=== PATIENT | male | born 1955 | race Two or more races ===

== ENCOUNTER 2021-04-27 12:48 | Observation (INO) | payer MEDICARE ==
[~2021-04-27] VITALS: Ht 152.4 cm; Wt 87.9 kg
[~2021-04-27 12:48] MED LIST: CIPROFLOXACIN500 MG PO; FERROUS SULFAT325 M2 PO; FLAGYL250 MG PO; KLOR-CON M2020 MEQ PO; LACTULOSE20 GM/30 M PO; LASIX40 MG PO; MAGNESIUM400 MG PO; NORCO 5-325 TA1 EACH PO; PROTONIX40 MG PO; SPIRONOLACTONE25 MG PO; THERA1 EACH PO
[2021-04-27] MEDS ORDERED: XIFAXAN550 MG PO (13:01)
[2021-04-27] MEDS ORDERED: PANTOPRAZOLE SO40 MG PO (13:01)
[2021-04-27] MEDS ORDERED: TYLENOL EXTRA500 MG PO (17:51)
[2021-04-27] MEDS ORDERED: CONSTULOSE10 GM/15 M PO (17:53)
[2021-04-27] MEDS ORDERED: IRON325 M1 PO (17:55)
--- NOTE | 2021-04-27 18:37 | NUR ---
Patient arrived to Med/surg from ER via [facility] at formerly [facility] 1635. He was alert and cooperative and self transferred from [facility] to bed with verbal cueing. He is oriented to self and place. He swallows pills easily with coaching. He appears mildly jaundice. He has discoloration on bilateral lower extremites. He drinks water with encouragement. He has been unable to drink through a straw. Oriented patient to bed, room, call system. At this time patient has not voided and declines need to use the bathroom at this time.
--- NOTE | 2021-04-27 19:54 | NUR ---
RECEIVED REPORT FO DAY SHIFT RN. PATIENT IS RESTING IN BED WITH EYES CLSOED, RR 16. CALL LIGHT IN REACH. BED ALARM ON FOR SAFETY.
--- NOTE | 2021-04-27 21:50 | NUR ---
PATIENT ASSESMENT COMPLETED. PATIENT ASSISTED TO THE RESTROOM A 1PA. PATIENT STRUGGLES TO FOLLOW DIRECTIONS BUT IS EASILY REDIRECTBALE. PATIENT WAS ABLE TO VOID AND HAD LARGE LOOSE BM. PATIENT IS BACK IN BED RESTING. VITALS TAKEN AND RECORDED. INTAKE AND OUTPUT RECORDED. SCHEDULED MEDICATIONS GIVEN PERT ORDER. MAG INFUSING PER ORDER. PATIENT PROVIDED WITH SIPS OF WATER. PATIENT DENIES ANY PAIN. NO FURTHER NEEDS NOTED. WARM BLANKET PROVIDED. CALL LIGHT IN REACH. BED ALARM ON FOR SAFETY.
--- NOTE | 2021-04-27 22:00 | NUR ---
SBA TO THE BATHROOM. PATIENT VOIDED A 100ML AND EXTRA LARGE LOOSE GREENISH STOOL. PATIENT PASSED GAS A LOT. ASSISTED IN WICHO CARE. PATIENT IS BACK IN BED. PATIENT STATED "I HOPE NO MORE". BED ALARM ON. NO OTHER NEEDS AT THIS TIME. CALL LIGHT AND SIDE TABLE WITHIN REACH.
--- NOTE | 2021-04-27 22:57 | NUR ---
MAG COMPLETED INFUSING. PT SL PER ORDER. NO NEEDS NOTED. CALL LIGHT IN REACH. BED ALARM ON FOR SAFETY.
--- NOTE | 2021-04-27 23:43 | NUR ---
PATIENT IS RESTING IN BED WITH EYES CLSOED, RR 19. CALL LIGHT IN REACH. BED ALARM ON FOR SAFETY.
--- NOTE | 2021-04-28 02:01 | NUR ---
PATIENTS VITALS TAKEN AND RECORDED. PATIENT DENIES THE NEED TO USE THE RESTROOM. PATIENT DENIES ANY NEEDS. PATIENT IS AAOX4. PATIENT IS ABLE TO ANSWER ALL ORIENTATION QUESTIONS APPROPRIATELY. CALL LIGHT IN REACH. BED ALARM ON FOR SAFETY. UPDATED PATIENT ON PLAN OF CARE.
--- NOTE | 2021-04-28 02:40 | NUR ---
PATIENT USED CALL LIGHT AND ALERTED STAFF. PATIENT ASSISTED TO THE RESTROOM A SBA. PATIENT ABLE TO VOID AND HAVE LARGE LOOSE BM. PATIENT IS BACK IN BED RESTING. NO FURTHER NEEDS NOTED. CALL LIGHT IN REACH.
--- NOTE | 2021-04-28 03:27 | NUR ---
PATIENT IS RESTING IN BED WITH EYES CLSOED, RR 17. CALL LIGHT IN REACH. BED ALARM ON FOR SAFETY.
--- NOTE | 2021-04-28 05:25 | NUR ---
MORNING VITALS TAKEN AND RECORDED. INTAKE AND OUTPUT RECORDED. PATIENT ASSISTED TO THE RESTROOM A SBA. PATIENT ABLE TO VOID AND HAVE SMALL BM. PATIENT IS BACK IN BED RESTING. PATIENT DENIES ANY NEEDS. PATIENTS CALL LIGHT IN REACH. BED ALARM ON FOR SAFETY.
--- NOTE | 2021-04-28 07:26 | NUR ---
REPORT RECEIVED FROM KARIN JEFFERSON - PATIENT IS ALERT AND ORIENTED. DENIES PAIN. HE IS WATCHING TV. SWALLOWS PILLS WHOLE WITHOUT DIFFICULTY. HE DENIES NEEDS AT THIS TIME.
--- NOTE | 2021-04-28 10:25 | NUR ---
PT AWAKE IN CHAIR WATCHING TV. CALL LIGHT IN REACH. NO FURTHER NEEDS AT THIS TIME.
--- NOTE | 2021-04-28 11:29 | NUR ---
ANSWERED PT CALL LIGHT, ASSISTED PT TO BR, SBA. WILL CALL WHEN FINISHED.
--- NOTE | 2021-04-28 12:23 | NUR ---
patient sitting in the chair eating lunch. when asked if he needed anything he requested water. water was provided. Denied additonal needs at this time
--- NOTE | 2021-04-28 13:01 | NUR ---
PT INDEPENDENT IN ROOM AND CALLS APPROPRIATELY. CALL LIGHT IN REACH. PT UP IN CHAIR. NO FURTHER NEEDS AT THIS TIME.
--- NOTE | 2021-04-28 17:27 | NUR ---
Medications reconciled
--- NOTE | 2021-04-28 17:30 | NUR ---
Provided medications see e-mar. patient ate 100% of dinner. He is sitting up in the chair watching tv. Uses call you appropriately. Denies any needs at this time. He has been voiding quantity sufficent and having stools as expected with lactulose.
--- NOTE | 2021-04-28 20:20 | NUR ---
SBA TO THE BATHROOM. PATIENT IS BACK IN BED. WARM BLANKET PROVIDED. DAUGHTER IN THE ROOM.
--- NOTE | 2021-04-28 21:12 | NUR ---
wallisian speaking, alert and oriented, follows instructions. coop with assessment. clear lungs, abd large HEA, gets lactulose scheduled, having multiple stools. sl RAC patent. edema to LE, elevated, tolerating liquids well, no emesis.
--- NOTE | 2021-04-28 21:50 | NUR ---
PATIENT BACK IN BED FROM BATHROOM. NO FURTHER NEEDS AT THIS TIME. BED ALARM ON FOR SAFETY.
--- NOTE | 2021-04-29 01:00 | NUR ---
RESTING, EYES CLOSED, NO DISTRESS, BED ALARM ON. CALL LIGHT AND FLUIDS AT BEDSIDE
--- NOTE | 2021-04-29 03:02 | NUR ---
RESTING, EYES CLOSED, NO DISTRESS, CALL LIGHT AND FLUIDS AT BEDSIDE
--- NOTE | 2021-04-29 04:40 | NUR ---
PATIENT CALLED TO USE THE BATHROOM. SBA. PATIENT IS BACK IN BED. V/S AND I&O'S TAKEN AND CHARTED. CRANBERRY JUICE PROVIDED. CALL LIGHT WITHIN REACH. RN MARTHA WAS WITH PATIENT.
--- NOTE | 2021-04-29 04:44 | NUR ---
Up to br, voided, back to bed, tolerated well, no c/o pain, skin less jaundiced. sl patent. on room air. helps with repositioning. all procedures explained in Lao by this RN
--- NOTE | 2021-04-29 05:37 | NUR ---
IN ROOM AIR, CLEAR LUNGS, ABD SOFT, OBESE, IRENE, HAD 1 BM THIS SHIFT EARLIER ON SHIFT, NONE SINCE THNE, HAS VOIDED QS. GETS UP TO BR W/O ASSIST. BED ALARM ON. EDEMA TO LE, ELEVATED. SSPANISH SPEACKING, DOES SPEAK SOME GEORGIAN, PLEASANT AND COOPERATIVE, ALL PROCEDURES EXPLAINED TO PT IN LITHUANIAN BY THIS RN, STAED UNDERSTANDING. JAUNDICED SKIN. TOLERATING DIET AND FLUIDS WELL, NO C/O CP. FORGETFUL, EASLY REORIENTED
--- NOTE | 2021-04-29 07:56 | NUR ---
AM medications given, Assessment to be completed. Updated to the best of my ability with him regarding his plan of care. Patient is sitting up in bed at this time, denies pains, denies any needs at this time
--- NOTE | 2021-04-29 08:10 | NUR ---
PT WAS IN BED ON THE PHONE. PT REFUSED TO GET UP INTO THE CHAIR. CALL LIGHT IS WITHIN REACH. WHITEBOARD UPDATED. NO FURTHER NEEDS AT THIS TIME.
--- NOTE | 2021-04-29 09:15 | NUR ---
patient laying in bed, no pain per the patient, just resting. Respiration 17
--- NOTE | 2021-04-29 10:02 | NUR ---
PT CALL LIGHT ON. PT REQUESTS ASSISTANCE UP TO RESTROOM. STAND BY ASSIST UP TO RESTROOM. PT VOIDS 400ML CLEAR YELLOW URINE AND HAS MEDIUM FORMED BOWEL MOVEMENT WITHOUT ISSUE. PT PERFORMS SELF WICHO CARE. STAND BY ASSIST BACK TO BED. PT DENIES ADDITIONAL REQUESTS OR COMPLAINTS. CALL LIGHT WITHIN REACH. BED RAILS UP. PT TALKING WITH FAMILY ON THE PHONE.
--- NOTE | 2021-04-29 10:14 | NUR ---
Patient ambulating in the [place] with the ORDERLY, he has discharge orders. Daughter was updated over the phone that he is being discharge and that his ride could come anytime.
--- NOTE | 2021-04-29 10:22 | NUR ---
THIS CARDIOLOGY CLINICAL NURSE SPECIALIST DID A STAND BY ASSIST WHILE PT WALKED TWICE AROUND THE UNIT. PT NEEDED A CANE ON THE SECOND LAP. PT TOLERATED IT WELL. PT IS NOW IN BED. CALL LIGHT IS WITHIN REACH. NO FURTHER NEEDS AT THIS TIME.
--- NOTE | 2021-04-29 12:27 | NUR ---
discharge instructions discussed with the patient and his daughter. discharge packet given to the patient. IV access was removed, cath intact, site clean dry and intact.
--- NOTE | 2021-04-29 13:42 | NUR ---
spoke with patient's daughter Katherine over the phone, discused discharge and follow up appointment. Patient verbalized understanding and had no questions at his time.
== END 2021-04-29 13:00 | disposition home or self-care (01) ==
LOC: ED 12:48 → MS 12:49
PROVIDERS: ADMIT Internal Medicine; ATTEND Internal Medicine
DX: K72.00 Acute and subacute hepatic failure without coma (principal); K72.10 Chronic hepatic failure without coma; K70.9 Alcoholic liver disease, unspecified; F10.21 Alcohol dependence, in remission; K85.90 Acute pancreatitis without necrosis or infection, unspecified; I10 Essential (primary) hypertension; D64.9 Anemia, unspecified; E87.6 Hypokalemia; Z90.49 Acquired absence of other specified parts of digestive tract; Z20.822 Contact with and (suspected) exposure to COVID-19
CPT/HCPCS: 36415; 80048; 80053; 81001; 82140; 83690; 83735; 85025; 85610; 99285; C9803; G0480; J3475; J3480; J7030; J7060; U0003